=== PATIENT | female | born 1990 | race Caucasian/White ===

== ENCOUNTER → 2016-10-21 | Outpatient (REF) | payer OTHER | LOC: M LAB REF 12:30 | PROVIDERS: ATTEND Obstetrics & Gynecology | DX: Z34.03 Encounter for supervision of normal first pregnancy, third trimester (principal) ==

== ENCOUNTER 2016-11-15 16:20 | Inpatient (IN) | payer OTHER ==
[2016-11-15] VITALS (21 sets, daily range): BP systolic 105–159; BP diastolic 54–93
[~2016-11-15] VITALS: Ht 172.7 cm; Wt 80.0 kg
[2016-11-15] MEDS ORDERED: PRENTAB9 PO (17:05)
[2016-11-15 18:05] LABS: MEAN CORPUSCULAR HEMOGLOBIN 31.6 pg (27.0-33.0); MEAN CORPUSCULAR HGB CONC 34.9 g/dl (32.0-36.5); MEAN CORPUSCULAR VOLUME 90.6 fl (80.0-96.0); RED CELL DISTRIBUTION WIDTH 12.8 % (11.5-14.5); WHITE BLOOD COUNT 21.9 K/mm3 (4.0-10.0)
--- NOTE | 2016-11-15 18:40 | HPEPDOC ---
Obstetrical History & Physical General Date of Admission Nov 15, 2016 at 17:08 Primary Care Physician: DICK MCKEON CNM History of Present Illness Patient is a 26-year-old female who is a at 39 weeks 5 days gestation with an BLACK of 11/17/2016 based off of her LMP and consistent with her first trimester ultrasound. She initiated care in her first trimester at [facility]. Her has been uncomplicated. She reported to labor and delivery today with complaints of leaking of fluid that occurred at 0500. Patient labored at home for 12 hours prior to coming into L&D. Patient reports she is leaking clear fluid. Complaining of contractions that are occurring every 3 minutes. Patient denies vaginal bleeding. Reports active movement. Chief Complaint: Active Labor, Rupture of membranes Information Provided By: Patient Age: 26 : 1 Livin Care Care: Good Care Number of Visits: 14 Dating Final EDC: Nov 17, 2016 Final EDC by: LMP LMP: Feb 11, 2016 EGA at Admission: 39.5 Antepartum Course Height (inches): 68 Pre- weight (lbs.): 140 Admission Weight (lbs.): 180 Change in Weight (lbs.): 40 Past Medical History Past Obstetrical History : Past Obstetrical History: [employer] History: No pertinent history Past Medical History Medical History History of varicella as a child, shingles doesn't all, history of a heart murmur at with closure, hemorrhoids that occurred during . Surgical History: Denies/None Family History Significant Family History: Cancer (skin), Other (hyperlipidemia) Social History Social history Patient is a teacher. Patient's father of the baby is involved. Nonsmoker. No history of drug abuse or alcohol use. Denies history of abuse. Marital Status: Family situation: Spouse/partner home Psychosocial History: No pertinent psych hx * Smoker: non-smoker Alcohol: Denies Drugs: denies Abuse Violence Screening Have you been hit/kicked/slapp: No Have you been sexually assault: No Imunizations Tdap status: current Influenza Status: current Medications Scheduled Multivitamins/ ( 27-0.8 mg) 1 Tab Tab 1 TAB PO DAILY Physical Examination Physical Examination GENERAL: Alert and oriented times three. BREAST: . ABDOMEN: Gravid and non-tender to touch. FETUS: Is vertex (VTX) by sterile vaginal examination (SVE), fetus is vertex ( VTX) by Daniel. HEART RATE: Regular rate and rhythm. LUNGS: Clear to auscultation (CTA). Regular rate and rhythm. EXTREMITIES: No edema. No clonus. Deep tendon reflexes (DTRs) + 2. Vital Signs/I&O Vital Signs Date Time Temp Pulse Resp B/P Pulse Ox O2 Delivery O2 Flow Rate FiO2 11/15/16 16:39 97.4 112 18 143/81 Laboratory Data 24H LABS Laboratory Tests 2 11/15/16 17:25: Serology Scanned Report Hepatitis B Testing 11/15/16 17:35: CBC/BMP Laboratory Tests 11/15/16 17:35 Red Blood Count 4.63, Mean Corpuscular Volume 90.6, Mean Corpuscular Hemoglobin 31.6, Mean Corpuscular Hemoglobin Concent 34.9, Red Cell Distribution Width 12.8 Urine Culture: No Growth Pertinent Laboratoy Data Blood Type: O+ RBC Antibody Screen: Negative HIV: Negative Hepatitis B: Negative Rapid Plasma Reagin: Nonreactive Rubella: Immune Chlamydia/Gonorrhea: Negative Group B Streptococcus: Negative Quad Screen Test: Declined Glucose Tolerance Test: 120 Anatomy Ultrasound Ultrasound Date: Oct 31, 2016 Normal Anatomy: Yes Placenta Previa: No Estimated Weight (grams): 3194 Vaginal Examination Dilation: 4 cm Effacement: Other (100%) Station: Other (0) Cervical Position: Anterior Presentation: Cephalic presentation Position: Vertex (occiput) Assessment Heart Rate (FHR): 135 Variability: Moderate Accelerations: Positive Decelerations: None Tocometer Contractions: Yes Frequency: regular, other (every 2-3 minutes) Strength: palpated as moderate Multi-drug resistant Organism: No history of MDRO Assessment/Plan Assessment IUP at 39 weeks 5 days gestation, active labor, spontaneous rupture of membrane , category 1 heart rate tracing. Plan Admit to labor and delivery. Saline lock, labs as ordered, out of bed ad nel., regular diet. Patient desires to labor naturally without any intervention at this time. Reviewed protocols with patient and if she is ruptured more than 24 hours. Patient verbalized understanding of our protocols. Will continue to monitor mother and fetus. Reviewed with patient desire to intervene with Pitocin augmentation if patient exhibits any signs or symptoms of infection or has no cervical change in 3 hours. Patient agrees with plan of care. Anticipate cervical change and spontaneous vaginal delivery. DICK MCKEON CNM Nov 15, 2016 18:40
[2016-11-15] MEDS ORDERED: FENTANYL 2MCG/ML ROPIVACAINE 0.2% NACL 250 ML CADD As Ordered ONE (19:25)
[2016-11-15] MEDS ORDERED: LACTATED RINGER'S 1000 ML IV STA (19:36)
[2016-11-15] MEDS ORDERED: LR 1,000 ML IV SCH (19:36)
[2016-11-15] MEDS ORDERED: ePHEDrine SULFATE 25 MG/5 ML(5MG/ML) SYRINGE IV PRN (20:00)
[2016-11-15] MEDS ORDERED: FENTANYL/ROPIVACAINE/NACL CADD 250 ML EPIDURAL SCH (20:00)
[2016-11-15] MEDS ORDERED: ONDANSETRON 4MG/2ML VIAL (J2405) IV PRN (20:00)
[2016-11-15] MEDS ORDERED: LACTATED RINGER'S 1000 ML IV PRN (20:00)
[2016-11-15] MEDS ORDERED: EPIDURAL/PCA KEYS XX PRN (20:00)
[2016-11-15] MEDS ORDERED: REFRIGERATOR IV KEYS XX PRN (20:00)
[2016-11-15] MEDS ORDERED: EPIDURAL COMMENT XX SCH (20:00)
[2016-11-15] MEDS ORDERED: diphenhydrAMINE INJ 50MG/ML VIAL (J1200) IV PRN (20:00)
[2016-11-15] MEDS ORDERED: NALOXONE INJ 0.4 MG/1 ML VIAL (J2310) IV PRN (20:00)
[2016-11-15] MEDS ORDERED: OXYTOCIN DRIP 30 UNITS in APPROPRIATE DILUENT 1 EA IV SCH (21:45)
[2016-11-16] VITALS (13 sets, daily range): BP systolic 113–139; BP diastolic 53–74
--- NOTE | 2016-11-16 00:53 | IPNPDOC ---
Obstetrical Progress Note Date of Service The patient was seen on 11/16/16 at 2153. Progress Note SUBJECTIVE: Patient is comfortable with epidural. No complaints. OBJECTIVE: FHR: 135, moderate variability, positive accelerations, no decelerations. Contractions every 2-4 minutes. VITAL SIGNS: Please see below. CURRENT LABS: Please see below. ASSESSMENT: IUP at 39.5 weeks gestation, SROM, active labor, Category I FHR tracing. PLAN: Start Pitocin per order. Reviewed plan with patient along with education on Pitocin. Patient and agree with Pitocin augmentation. VS, I&O, 24H, Fishbone Vital Signs/I&O Vital Signs Date Time Temp Pulse Resp B/P Pulse Ox O2 Delivery O2 Flow Rate FiO2 11/15/16 23:52 93 107/59 11/15/16 21:27 18 11/15/16 17:54 98.2 I&O- Last 24 Hours up to 6 AM 11/16/16 06:00 Output Total 400 ml Balance -400 ml Laboratory Data 24H LABS Laboratory Tests 2 11/15/16 17:25: Serology Scanned Report Hepatitis B Testing 11/15/16 17:35: CBC/BMP Laboratory Tests 11/15/16 17:35 Red Blood Count 4.63, Mean Corpuscular Volume 90.6, Mean Corpuscular Hemoglobin 31.6, Mean Corpuscular Hemoglobin Concent 34.9, Red Cell Distribution Width 12.8 DICK MCKEON CNM Nov 16, 2016 00:53
--- NOTE | 2016-11-16 01:03 | IPNPDOC ---
Obstetrical Progress Note Date of Service The patient was seen on 11/16/16 at 00:30. Progress Note SUBJECTIVE: Patient comfortable with no complaints. OBJECTIVE: FHR baseline: 135, minimal variability, early and variable decelerations, positive accelerations. Contractions every 1.5-3. SVE: fully dilated, +1 station. Cephalic presentation via SVE. Within 10 minutes Category I FHR tracing noted. ASSESSMENT: IUP at 39 weeks 5 days gestation, active labor PLAN: Pitocin was started but not connected so patient did not receive any Pitocin. Patient does no feel pressure. Will start pushing. Anticipate . DICK MCKEON CNM Nov 16, 2016 01:03
[2016-11-16] MEDS ORDERED: OXYTOCIN DRIP 30 UNITS in APPROPRIATE DILUENT 1 EA IV SCH (04:02)
[2016-11-16] MEDS ORDERED: METHYLERGONOVINE MALEATE 0.2 MG TAB PO PRN (04:15)
[2016-11-16] MEDS ORDERED: DIBUCAINE 1% OINTMENT 30GM TOP PRN (04:15)
[2016-11-16] MEDS ORDERED: DOCUSATE SODIUM 100 MG CAP PO PRN (04:15)
[2016-11-16] MEDS ORDERED: MEASLES,MUMPS,RUBELLA VACCINE INJ (MMR-II) (90707) SC SCH (04:15)
[2016-11-16] MEDS ORDERED: IBUPROFEN 800 MG TAB PO PRN (04:15)
[2016-11-16] MEDS ORDERED: RHOGAM 300 MCG (1500 IU) INJ (J2790) IM SCH (04:15)
[2016-11-16] MEDS ORDERED: ANUSOL HC CREAM 30GM TOP PRN (04:15)
[2016-11-16] MEDS ORDERED: ACETAMINOPHEN 500 MG TAB PO PRN (04:15)
--- NOTE | 2016-11-16 04:17 | DNPDOC ---
Delivery Note Delivery Note Erica is a 26-year-old female now G 1 P 1001 at 39.6 weeks' gestation who presented to labor and delivery in active labor and spontaneous rupture of membrane at 0500 on . She received an epidural for pain management. She progressed to fully dilated at 0036. Patient started pushing at 0100. She pushed to a spontaneous vaginal delivery at 0144 to a living female in the MENA position with restitution to LOT. No nuchal cord. A compound left hand was noted with the delivery of 's head. Shoulders delivered with ease and the corpus immediately followed. Baby placed on maternal abdomen crying and active. Cord clamped 2 and cut by the father of the baby after pulsation ceased. Cord blood obtained. Spontaneous delivery of intact placenta with a three-vessel cord by Mercedes mechanism at 0154. Uterine hemostasis achieved by rapid infusion of IV Pitocin and uterine fundal massage. Perineum and vagina inspected and found to have a left vaginal wall tear, a left labial laceration, and an inner right labial/perineal laceration. All were repaired using a 3. [address]-1 and 3. 0 Vicryl [address]. EBL 500. 's 9/10. Weight 7 pounds, 3180 g. [place]'s name is Gerber and she is well. Patient and baby are stable. DICK MCKEON CNM Nov 16, 2016 04:17
[2016-11-16] MEDS: PRENATAL VITAMIN TAB PO SCH (09:56)
--- NOTE | 2016-11-16 12:32 | IPNPDOC ---
Obstetrical Progress Note Date of Service The patient was seen on 11/16/16 at 11:00. Progress Note SUBJECTIVE: Patient denies any pain presently. Voiding without difficulty. with some assistance. OBJECTIVE: PHYSICAL EXAMINATION: VITAL SIGNS: Please see below. BREAST EXAMINATION: Soft, non-tender. Nipples intact. FUNDUS: Firm 3 below uterus. Nontender. PERINEUM: Lochia moderate, bright red. Slight swelling noted at perineum. EXTREMITIES: Bilateral lower legs and feet with no edema. ASSESSMENT: less than 12 hours . PLAN: Continue supportive nursing care and supportive care. VS, I&O, 24H, Fishbone Vital Signs/I&O Vital Signs Date Time Temp Pulse Resp B/P Pulse Ox O2 Delivery O2 Flow Rate FiO2 11/16/16 09:59 97.0 101 18 113/67 I&O- Last 24 Hours up to 6 AM 11/16/16 05:59 Intake Total 500 ml Output Total 900 ml Balance -400 ml Laboratory Data CBC/BMP DICK MCKEON CNM Nov 16, 2016 12:32
[2016-11-17 06:01] VITALS: BP 132/83
[2016-11-17] MEDS: PRENATAL VITAMIN TAB PO SCH (10:55)
[2016-11-17 18:00] VITALS: BP 118/69
[2016-11-18 06:32] VITALS: BP 112/71
[2016-11-18] MEDS: PRENATAL VITAMIN TAB PO SCH (08:38)
[2016-11-18] MEDS ORDERED: IBUP-1114 PO (08:56)
[2016-11-18] MEDS ORDERED: ACET50TA PO (08:56)
== END 2016-11-18 10:45 | disposition home or self-care (01) | DRG 775 ==
LOC: M LDO 16:20 → M LDI 17:08 → M OBS 11-16 15:09
PROVIDERS: ADMIT Advanced Practice Midwife; ATTEND Advanced Practice Midwife
PROC: 10E0XZZ Delivery of Products of Conception, External Approach (ICD-10-PCS; principal; 2016-11-16)
PROC: 0HQ9XZZ Repair Perineum Skin, External Approach (ICD-10-PCS; 2016-11-16)
DX: O32.6XX0 Maternal care for compound presentation, not applicable or unspecified (principal); Z37.0 Single live birth; Z3A.39 39 weeks gestation of pregnancy; O70.0 First degree perineal laceration during delivery

== ENCOUNTER → 2018-02-15 | Outpatient (REF) | payer OTHER ==
[2018-02-15 18:21] LABS: HEMOGLOBIN 13.2 g/dl (12.0-15.5); MEAN CORPUSCULAR HEMOGLOBIN 30.7 pg (27.0-33.0); MEAN CORPUSCULAR HGB CONC 35.7 g/dl (32.0-36.5); PLATELET COUNT, AUTOMATED 260 10^3/uL (150-450); RED CELL DISTRIBUTION WIDTH 11.6 % (11.5-14.5); WHITE BLOOD COUNT 10.5 10^3/uL (4.0-10.0)
[2018-02-16 22:47] LABS: HCG, SERUM QUANTITATIVE 90809 MIU/ML
[2018-02-17 08:41] LABS: RUBELLA IgG QUALITATIVE IMMUNE (IMMUNE)
[2018-02-17 08:49] LABS: HBsAg Prenatal NEGATIVE (NEGATIVE)
[2018-02-17 09:10] LABS: HEPATITIS C VIRUS ABY INDEX 0.1 INDEX (<0.8)
[2018-02-17 09:11] LABS: HIV 1&2 SCREEN CENTAUR NEGATIVE (NEGATIVE)
== END ==
LOC: M LAB REF 16:53
DX: O36.80X0 Pregnancy with inconclusive fetal viability, not applicable or unspecified (principal); Z3A.00 Weeks of gestation of pregnancy not specified

== ENCOUNTER → 2018-05-13 | Outpatient (REF) | payer OTHER ==
[2018-05-13 21:50] LABS: CHLAMYDIA DNA AMPLIFICATION NEGATIVE (NEGATIVE); GC DNA AMPLIFICATION NEGATIVE (NEGATIVE)
== END ==
LOC: M LAB REF 17:22
DX: Z34.82 Encounter for supervision of other normal pregnancy, second trimester (principal)

== ENCOUNTER → 2018-07-15 | Outpatient (CLI) | payer OTHER ==
[2018-07-15 16:39] LABS: HEMATOCRIT 34.9 % (36.0-47.0); MEAN CORPUSCULAR HEMOGLOBIN 30.5 pg (27.0-33.0); MEAN CORPUSCULAR HGB CONC 34.4 g/dl (32.0-36.5); MEAN CORPUSCULAR VOLUME 88.6 fl (80.0-96.0); PLATELET COUNT, AUTOMATED 132 10^3/uL (150-450); RED BLOOD COUNT 3.94 10^6/uL (4.00-5.40); RED CELL DISTRIBUTION WIDTH 12.5 % (11.5-14.5); WHITE BLOOD COUNT 12.5 10^3/uL (4.0-10.0)
[2018-07-15 16:46] LABS: GLUCOSE CHALLENGE TEST 1 HOUR 91 MG/DL (LESS THAN 140)
== END ==
LOC: M LAB 14:49
DX: Z34.82 Encounter for supervision of other normal pregnancy, second trimester (principal)
CPT/HCPCS: 82950